=== PATIENT | male | born 1995 | race Caucasian/White ===

== ENCOUNTER 2017-04-25 19:28 | Emergency (ER) | payer SELFPAY ==
[~2017-04-25] VITALS: Ht 182.9 cm; Wt 114.5 kg
[2017-04-25 19:40] VITALS: BP 155/89; PULSE 87; RESP 17; TEMP 98.4; O2SAT 98
[2017-04-25] MEDS ORDERED: TETANUS/DIPHTHERIA TOXOID ADULT 0.5 ML VIAL IM ONE (20:15)
[2017-04-25] MEDS ORDERED: PROPARACAINE HCL 0.5% OPHT SOLN 15 ML BTL EACH EYE ONE (20:15)
[2017-04-25] MEDS ORDERED: IBUP800T23 PO (20:43)
[2017-04-25] MEDS ORDERED: POLY10O RIGHT EYE (20:43)
[2017-04-25] MEDS ORDERED: HYDR-3533 PO (20:43)
--- NOTE | 2017-04-25 21:02 | PD ---
HPI Chief Complaint: Foreign Body Time Seen by Provider: 20:09 Travel History International Travel<30 days: No Contact w/Intl Traveler<30days: No Traveled to known affect area: No History of Present Illness HPI 21-year-old male that presents to the ED for evaluation of right eye foreign bodies. Per patient he was working today and there were shards of metal that got into his eye. Per patient he thinks there might be 5. He been trying to rinse it with no relief. Per patient he has pain in the eye which is 5 out of 10. Feels like there is something in there. Unknown of his last tetanus shot. No other medical issues. No allergies to medication. PFSH Past Medical History Medical History: Denies Significant Hx Diminished Hearing: No Tetanus Vaccination: Unknown Influenza Vaccination: No ?: Not Past Surgical History Surgical History: No Previous Surgery Social History Alcohol Use: Yes (OCC) Tobacco Use: Yes (CIGAR ONCE A WEEK) Substance Use: No Allergies-Medications (Allergen,Severity, Reaction): Coded Allergies: No Known Allergies (Unverified , 04/25/17) Reported Meds & Prescriptions Reported Meds & Active Scripts Active Polytrim Opth Drops (Polymyxin/Trimethoprim Sulfate) 10,000-0.1 Unit/Ml-% Soln 1 Drop RIGHT EYE Q6HR Ibuprofen 800 Mg Tab 800 Mg PO Q8H PRN Lortab (Hydrocodone-Acetaminophen) 5-325 Mg Tab 1 Tab PO Q6H PRN Review of Systems Except as stated in HPI: all other systems reviewed are Neg Physical Exam Narrative GENERAL: SKIN: Warm and dry. HEAD: Atraumatic. Normocephalic. EYES: Pupils equal and round 4 mm reactive to light and accommodation. No scleral icterus. No injection or drainage. EOM intact bilaterally. Fluorescein test revealed what appears to be 6 foreign bodies to the lower aspect of the cornea. No other foreign body noted with eyelid eversion. ENT: No nasal bleeding or discharge. Mucous membranes pink and moist. NECK: Trachea midline. No JVD. CARDIOVASCULAR: Regular rate and rhythm. RESPIRATORY: No accessory muscle use. Clear to auscultation. Breath sounds equal bilaterally. GASTROINTESTINAL: Abdomen soft, non-tender, nondistended. Hepatic and splenic margins not palpable. MUSCULOSKELETAL: Extremities without clubbing, cyanosis, or edema. No obvious deformities. NEUROLOGICAL: Awake and alert. No obvious cranial nerve deficits. Motor grossly within normal limits. Five out of 5 muscle strength in the arms and legs. Normal speech. PSYCHIATRIC: Appropriate mood and affect; insight and judgment normal. Data Data Last Documented VS Vital Signs Date Time Temp Pulse Resp B/P (MAP) Pulse Ox O2 Delivery O2 Flow Rate FiO2 04/25/17 19:40 98.4 87 17 155/89 (111) 98 Orders Orders Proparacaine 0.5% Opth Soln (Alcaine 0.5 (04/25/17 20:15) Tetanus/Diphtheria Tox Adult (Tetanus/Di (04/25/17 20:15) MDM Medical Decision Making Medical Screen Exam Complete: Yes Emergency Medical Condition: Yes Medical Record Reviewed: Yes Differential Diagnosis Foreign body versus corneal abrasion versus ulceration Narrative Course 21-year-old male that presents to the ED for evaluation of foreign body to the right eye. Patient was properly examined and was found to have signs and symptoms consistent with appears to be right eye foreign bodies. After explained procedure to the patient and she agreed. After anesthetizing the area with proparacaine using sterile needle all 6 foreign bodies were removed. Patient alert procedure well. Patient will be sent home with prescription for Lortab, Polytrim, ibuprofen. Told to follow with PCP. See ED worsening symptoms. Diagnosis Primary Impression: Corneal FB (foreign body) Qualified Codes: T15.01XA - Foreign body in cornea, right eye, initial encounter Patient Instructions: General Instructions Additional Instructions: Use sunglasses whenever outside. Take medications as prescribed. Do not drive if he can take the Lortab. See ED for worsening symptoms. Follow with PCP. Med/Other Pt SpecificInfo: Prescription(s) given Scripts Polymyxin B-Trimethoprim Opth Drops (Polytrim Opth Drops) 10,000-0.1 Unit/Ml-% Soln 1 DROP RIGHT EYE Q6HR for Mgmt Bacterial Infection, #1 BOTTLE 0 Refills Prov: Brandie Marsh MD 04/25/17 Ibuprofen (Ibuprofen) 800 Mg Tab 800 MG PO Q8H Y for PAIN SCALE 1 TO 10, #20 TAB 0 Refills Prov: Brandie Marsh MD 04/25/17 Hydrocodone-Acetaminophen (Lortab) 5-325 Mg Tab 1 TAB PO Q6H Y for PAIN, #10 TAB 0 Refills Prov: Brandie Marsh MD 04/25/17 Disposition: 01 DISCHARGE HOME Condition: Mahendra Gonzales Apr 25, 2017 21:02
== END 2017-04-25 21:05 | disposition home or self-care (01) ==
LOC: PHEFT 19:28
DX: T15.01XA Foreign body in cornea, right eye, initial encounter (principal); W20.8XXA Other cause of strike by thrown, projected or falling object, initial encounter; Z23 Encounter for immunization
CPT/HCPCS: 65220; 90471; 90714

== ENCOUNTER 2018-01-10 17:17 | Emergency (ER) | payer SELFPAY ==
[~2018-01-10] VITALS: Ht 182.9 cm; Wt 112.4 kg
[~2018-01-10 17:17] MED LIST: HYDR-3533 PO; IBUP1TAB7 PO; POLY10O RIGHT EYE
[2018-01-10 17:30] VITALS: BP 144/80; PULSE 72; RESP 15; TEMP 99.7; O2SAT 98
--- NOTE | 2018-01-10 17:41 | PD ---
HPI Chief Complaint: Musculoskeletal Complaint Time Seen by Provider: 17:35 Travel History International Travel<30 days: No Contact w/Intl Traveler<30days: No Traveled to known affect area: No History of Present Illness HPI 22-year-old male presents to the emergency department for evaluation of right hand injury. Patient states he injured his hand back in September. However, today he twisted his right hand and is concerned that he reinjured it. Patient has no medical problems and takes no prescribed medications. He denies any pain at this time. He states that if he moves his hand to the right and left, it will cause pain. Pain is completely gone if he keeps his hand still. Mild severity. PFSH Past Medical History Diminished Hearing: No Tetanus Vaccination: < 5 Years ?: Not Social History Alcohol Use: Yes (OCC) Tobacco Use: Yes (CIGAR ONCE A WEEK) Substance Use: No Allergies-Medications (Allergen,Severity, Reaction): Coded Allergies: Penicillins (Verified Allergy, Unknown, 01/10/18) Reported Meds & Prescriptions Reported Meds & Active Scripts Active No Active Prescriptions or Reported Medications Review of Systems Except as stated in HPI: all other systems reviewed are Neg Physical Exam Narrative GENERAL: Well-nourished, well-developed male patient, afebrile. SKIN: Focused skin assessment warm/dry. HEAD: Normocephalic. Atraumatic. EYES: No scleral icterus. No injection or drainage. NECK: Supple, trachea midline. No JVD or lymphadenopathy. CARDIOVASCULAR: Regular rate and rhythm without murmurs, gallops, or rubs. Right radial pulse 2+. RESPIRATORY: Breath sounds equal bilaterally. No accessory muscle use. Lung sounds are clear to auscultation peer GASTROINTESTINAL: Abdomen soft, non-tender, nondistended. MUSCULOSKELETAL: No cyanosis, or edema. No bony point tenderness or crepitus. No obvious deformity. He has full flexion-extension of all digits of the right hand and of the right wrist BACK: Nontender without obvious deformity. No CVA tenderness. Data Data Last Documented VS Vital Signs Date Time Temp Pulse Resp B/P (MAP) Pulse Ox O2 Delivery O2 Flow Rate FiO2 01/10/18 17:30 99.7 72 15 144/80 (101) 98 Orders Orders Hand, Complete ([id number]) (01/10/18 ) [facility] Medical Decision Making Medical Screen Exam Complete: Yes Emergency Medical Condition: Yes Medical Record Reviewed: Yes Interpretation(s) Last Impressions Hand X-Ray 01/10/18 0000 Signed Impressions: CONCLUSION: No evidence of recent bony injury. Differential Diagnosis Hand contusion versus chronic pain versus sprain versus unlikely fracture Narrative Course 22-year-old male presents to the emergency department for evaluation right hand pain. Exam is reassuring. I discussed the patient that I did not think an x- ray would give much more information. However, he has really wanting an x-ray to be completed and states the pain is much worse after his injury today. X- ray of the right hand is ordered and pending. X-ray of the right hand shows no evidence of recent bony injury. Patient is provided RX for Ibuprofen. He is stable to be discharged home. The patient was discharged in stable condition with instructions, including return instructions and follow up instructions. Diagnosis Primary Impression: Hand sprain Qualified Codes: S63.91XA - Sprain of unspecified part of right wrist and hand , initial encounter Referrals: Primary Care Physician call for appointment Patient Instructions: General Instructions, Hand Sprain (ED) Additional Instructions: Take Ibuprofen as directed as needed with food for pain. Ice for 20 mins 4-5 times daily. Follow-up with a primary care physician. Return to the emergency department for any acute worsening of symptoms. Med/Other Pt SpecificInfo: Prescription(s) given Scripts Ibuprofen (Ibuprofen) 800 Mg Tab 800 MG PO TID Y for PAIN SCALE 1 TO 10, #21 TAB 0 Refills Prov: Aimee Hidalgo 01/10/18 Disposition: 01 DISCHARGE HOME Condition: Stable Aimee Hidalgo January 10, 2018 17:41
--- NOTE | 2018-01-10 18:01 | RADRPT ---
EXAM DATE: 01/10/2018 5:56 PM EDT AGE/SEX: 22 years / Male INDICATIONS: Trauma to hand. CLINICAL DATA: This is the patient's initial encounter. Patient reports that signs and symptoms have been present for 1 day and indicates a pain score of 7/10. MEDICAL/SURGICAL HISTORY: None. None. COMPARISON: No prior [place] exams available for comparison. FINDINGS: Bony structures are intact and in normal alignment. Osseous density is normal. Soft tissues are unre markable. No radiopaque foreign bodies seen. CONCLUSION: No evidence of recent bony injury. Electronically signed by: Omer Pratt MD 01/10/2018 6:00 PM EDT
[2018-01-10] MEDS ORDERED: IBUP1TAB7 PO (18:10)
== END 2018-01-10 18:19 | disposition home or self-care (01) ==
LOC: PHEFT 17:17
DX: S63.91XA Sprain of unspecified part of right wrist and hand, initial encounter (principal); X50.1XXA Overexertion from prolonged static or awkward postures, initial encounter; F17.290 Nicotine dependence, other tobacco product, uncomplicated
CPT/HCPCS: 73130; 99283